=== PATIENT | male | born 1955 | race Caucasian/White ===

== ENCOUNTER 2018-09-29 17:51 | Emergency (ER) | payer OTHER ==
[~2018-09-29] VITALS: Ht 165.1 cm; Wt 70.8 kg
[~2018-09-29 17:51] MED LIST: CALCIUM LACTAT100 MG PO; FISH OIL 500MG500 MG PO; ROLAIDS220 M1 PO; [UNRECOGNIZED DRUG - OTHER] PO
[2018-09-29] MEDS ORDERED: CEFADROXIL500 M1 PO (18:20)
== END 2018-09-29 19:00 | disposition home or self-care (01) ==
LOC: ED 17:51
DX: S61.012A Laceration without foreign body of left thumb without damage to nail, initial encounter (principal); W26.0XXA Contact with knife, initial encounter; Y93.89 Activity, other specified; Y92.89 Other specified places as the place of occurrence of the external cause; Y99.8 Other external cause status